=== PATIENT | female | born 1945 | race Caucasian/White ===

== ENCOUNTER → 2019-08-30 17:00 | Outpatient (CLI) | payer MEDICARE, MEDICAID, SELFPAY ==
--- NOTE | 2019-08-30 17:07 | CT_ITS ---
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 Number of images including paperwork: [phone]. A radiation dose optimization technique was used for this scan. Scan was performed per low-dose CT protocol with CTDI 2.01 mGy and DLP 68.46 mGy-cm. COMPARISON: None FINDINGS: Soft tissue evaluation is limited due to low dose protocol. VASCULATURE: Vascular tortuosity. Atherosclerotic calcification. HEART/PERICARDIUM: Moderately enlarged heart. Coronary calcification. MEDIASTINUM: Unremarkable. ADENOPATHY: No pathologic appearing adenopathy. THYROID: Unremarkable visualized portions. LUNG PARENCHYMA: No consolidation or mass. 5 mm noncalcified solid nodule in the superior segment of the left lower lobe on series 2 image 54. 3 mm nodule in the left upper lobe on series 2 image 37 demonstrates faint groundglass halo. Additional nodules measuring less than 3 mm in size are seen bilaterally, some of which appear calcified. Mild peribronchial thickening. Mild emphysema. Linear opacities at the bases may be related to subsegmental atelectasis and/or scarring. PLEURAL SPACES: Unremarkable. UPPER ABDOMEN: Right kidney appears somewhat atrophic with probable small cysts. OSSEOUS AND SOFT TISSUE STRUCTURES: No acute skeletal findings. Degenerative changes. Old fracture deformity of the right proximal humerus. Compression deformities are noted involving T10, T11 and T12 without distinct fracture line or paraspinous hematoma. Correlate for localized pain. DEVICES: None. CT/Low Dose CT Lung Screening IMPRESSION: Multiple lung nodules, largest measuring 5 mm. Lung-RADS 2. Continue annual screening with low-dose chest CT in 12 months. Individualized dose optimization techniques were used for this CT. at 2327 Reported and signed by: Yolanda Pedraza MD Electronically Signed: Yolanda Pedraza MD at 23:26 EST Tel , Service support ,
== END ==
PROVIDERS: PCP Family Medicine; Referring Provider Family Medicine; Visit Provider Family Medicine
DX: Z12.2 Encounter for screening for malignant neoplasm of respiratory organs (principal); Z87.891 Personal history of nicotine dependence
CPT/HCPCS: G0297

== ENCOUNTER 2021-07-14 10:11 | Emergency (ER) | payer MEDICARE, MEDICAID, SELFPAY ==
[2021-07-14 10:12] VITALS: BP 122/78; PULSE 39; RESP 18; TEMP 36.6; O2SAT 95; BMI 21.9
--- NOTE | 2021-07-14 10:51 | EKG12_ITS ---
Test Reason : SYNCOPE Blood Pressure : / mmHG Vent. Rate : 038 BPM Atrial Rate : 038 BPM P-R Int : 122 ms QRS Dur : 092 ms QT Int : 564 ms P-R-T Axes : 033 004 011 degrees QTc Int : 448 ms Marked sinus bradycardia with Premature atrial complexes Nonspecific ST and T wave abnormality Abnormal ECG Confirmed by HENRY ESTRADA, ELIZ ([id number]), mapping editor DAVID DICKERSON ([id number]) on 07/16/2021 9:53:52 AM Referred By: PL Confirmed By:ELIZ FIGUEROA MD
--- NOTE | 2021-07-14 10:54 | EDS_ITS ---
HPI History of Present Illness Chief Complaint: Syncope Informant: patient and family Narrative Narrative: 75-year-old female with a history of coronary artery disease underwent eye surgery today. Postoperatively she was sitting in a wheelchair and became unresponsive. Family tells me that this is not an unusual occurrence. Typically when she passes out she is hypotensive and bradycardic and she goes to outside hospital. She does see local cardiology with Dr. Salazar. She has had prior cardiac stenting. She also has a history of atrial fibrillation and is on metoprolol 50 mg daily as well as Xarelto 20 mg daily. [facility] Medical History Anemia Atherosclerotic heart disease of [place] coronary artery without angina pectoris Dementia Essential (primary) hypertension History of COVID-19 (10/01/20) History of CVA (cerebrovascular accident) (07/27/16) History of septic shock Hyperlipidemia Non-ischemic cardiomyopathy Osteoporosis Paroxysmal atrial fibrillation (07/27/16) Recovering alcoholic in remission Secondary pulmonary arterial hypertension Home Medications isosorbide mononitrate 30 mg PO DAILY 07/20/16 [History Last Taken 07/26/16] lisinopril [Zestril] 40 mg PO DAILY 07/20/16 [History Last Taken 07/26/16] amlodipine 5 mg PO DAILY #30 tablet 07/26/16 [Rx Last Taken 07/26/16] atorvastatin 80 mg PO QHS #30 tablet 07/26/16 [Rx Last Taken 07/25/16] sennosides-docusate sodium [Stool Softener-Stimulant Laxat] 2 tab PO DAILY tablet 08/05/16 [Rx Last Taken Unknown] cholecalciferol (vitamin D3) 1,250 mcg (50,000 unit) capsule 1,250 mcg PO QWEEK 12/17/20 [History Last Taken Unknown] metoprolol tartrate 50 mg tablet 50 mg PO DAILY 12/17/20 [History Last Taken Unknown] rivaroxaban 20 mg tablet 20 mg PO DAILY 12/17/20 [History Last Taken Unknown] trazodone 100 mg tablet 100 mg PO QHS PRN 12/17/20 [History Last Taken Unknown] aspirin 81 mg tablet,delayed release 81 mg PO QDAY #90 tab 12/24/20 [Rx Last Taken Unknown] donepezil 5 mg tablet 5 mg PO DAILY tab 12/24/20 [History Last Taken Unknown] Allergy/AdvReac Type Severity Reaction Status Date / Time Penicillins Allergy Rash Verified 07/14/21 10:17 Family History Father CAD (coronary artery disease) Brother CAD (coronary artery disease) Surgical History History of coronary artery stent placement (12/24/14) History of left heart catheterization (10/09/14) Status post laser cataract surgery of right eye Social History Smoking Status: Former smoker quit date: 07/18/95 pack-years: 50 ROS ROS ED Constitutional Constitutional ED: Denies chills, fever(s) or weight loss Eyes Eyes: Denies change in vision or diplopia ENT ENT ED: Denies ear pain, rhinorrhea or sore throat Cardiovascular Cardiovascular: Reports other Details: Syncope ; Denies chest pain, orthopnea, palpitations or racing heartbeat Respiratory/Chest Respiratory/Chest: Denies cough, dyspnea or orthopnea Gastrointestinal Gastrointestinal: Denies abdominal pain, diarrhea, nausea or vomiting Genitourinary Genitourinary ED: Denies dysuria, hematuria or urinary frequency Musculoskeletal Musculoskeletal: Denies arthralgias or myalgias Integumentary Denies abscess or rash Neurologic Neurologic: Denies headache(s) or weakness Psychiatric Psychiatric: Denies anxiety, depression, suicidal ideation or suicidal thoughts Endocrine Endocrinology: Denies polydipsia, polyphagia or polyuria Allergic/Immunologic Allergic/Immunologic ED: Denies mouth swelling, tongue swelling or urticaria EXAM Physical Exam Const Vital Signs: 07/14/21 10:12 07/14/21 11:51 07/14/21 12:25 Temperature 97.8 F Temperature Source Oral Pulse Rate 39 L 39 L 38 L Respiratory Rate 18 18 18 Blood Pressure 122/78 H 132/66 H 129/67 H Blood Pressure Mean 92 88 87 Pulse Ox 95 97 97 Oxygen Delivery Method Room Air Room Air Room Air Positive well nourished and well developed General Appearance ED: well developed HEENT Reports normocephalic, head/scalp atraumatic and moist mucous membranes HEENT Narrative: Eyes are dilated. Eyes PERRL and EOMs intact bilaterally Neck no lymphadenopathy, supple and no JVD Resp normal respiratory effort and clear to auscultation bilaterally Cardio regular rate and no murmurs Rate: bradycardia GI normal to inspection, nondistended, normoactive bowel sounds and non-tender Palpation: soft Back/Spine no CVA tenderness and normal ROM Extremity normal to inspection General Extremety ED: Negative for edema General Extremity: Negative for edema Neuro CN's II-XII intact bilaterally Sensorium / Orientation: alert and orientation impaired Motor Exam: strength 5/5 throughout Psych mental status grossly normal Mood & Affect: Negative for depressed or tearful Skin no rashes or lesions noted and no wounds MDM MDM MDM Narrative Medical decision making narrative: Basic blood work was obtained and was negative. Troponin is 7. Her EKG is a sinus bradycardia. Interpretation of the chest x-ray is no acute process. Patient's blood pressure has returned to normal. She remains bradycardic in the high 30s to 40s. I spoke with her marketing graphics specialist Dr. Delatorre emergently to discontinue her metoprolol. Lab Data Attestation: I reviewed the patient's lab results. Labs: Laboratory Results - last 24 hr 07/14/21 07/14/21 10:14 11:10 WBC 5.3 RBC 3.96 L Hgb 11.7 L Hct 35.8 L MCV 90.4 MCH 29.5 MCHC 32.7 RDW Std Deviation 46.5 H RDW Coeff of [place] 14.0 Plt Count 140 L MPV 10.0 Immature Gran % (Auto) 0.800 Neut % (Auto) 67.6 Lymph % (Auto) 20.5 [place] % (Auto) 5.8 Eos % (Auto) 4.9 Baso % (Auto) 0.4 Absolute Neuts (auto) 3.6 Absolute Lymphs (auto) 1.09 Nucleated RBC % 0 Sodium 141 Potassium 3.7 Chloride 104 Carbon Dioxide 29.0 Anion Gap 8 BUN 28 H Creatinine 2.19 H Estim Creat Clear Calc 19.46 Est GFR (MDRD) Af Amer 28 L Est GFR (MDRD) Non-Af 23 L BUN/Creatinine Ratio 12.8 Glucose 145 H Calcium 9.0 Total Bilirubin 0.60 AST 10 L ALT 14 Alkaline Phosphatase 79 Troponin I High Sens 7 Total Protein 6.8 Albumin 3.0 L Globulin 3.8 Albumin/Globulin Ratio 0.8 L Radiography Diagnostic Testing: Clinical Impression(s) from Imaging Studies Chest X-Ray 07/14/21 11:26 IMPRESSION: No radiographic evidence of acute cardiopulmonary disease. Electronically Signed: Darrel Heredia MD at 12:12 EST Tel , Service support , EKG Initial EKG: Attestation: I personally reviewed and interpreted this EKG as follows: Comments: Sinus bradycardia with a ventricular rate of 38 bpm Discharge Plan Triage Chief Complaint: Syncope ED Provider: Terrell Owens Dx/Rx/DC Orders Clinical Impression: Syncope, Bradycardia, sinus Instructions: What Is Syncope? Prescriptions: No Action donepezil 5 mg tablet 5 mg PO DAILY RF: 0 aspirin [Adult Low Dose Aspirin] 81 mg tablet,delayed release (DR/EC) 81 mg PO QDAY Qty: 90 RF: 3 cholecalciferol (vitamin D3) 1,250 mcg (50,000 unit) capsule 1,250 mcg PO QWEEK RF: 0 metoprolol tartrate 50 mg tablet 50 mg PO DAILY RF: 0 rivaroxaban 20 mg tablet 20 mg PO DAILY RF: 0 trazodone 100 mg tablet 100 mg PO QHS PRN (Reason: Sleep) RF: 0 isosorbide mononitrate 30 MG tablet 30 mg PO DAILY RF: 0 lisinopril [Zestril] 40 MG tablet 40 mg PO DAILY RF: 0 atorvastatin 80 MG tablet 80 mg PO QHS Qty: 30 RF: 0 amlodipine 5 MG tablet 5 mg PO DAILY Qty: 30 RF: 0 sennosides-docusate sodium [Stool Softener-Stimulant Laxat] 1 TABLET tablet 2 tab PO DAILY RF: 0 Primary Care Provider: Pauly Ventura Referrals: Deandre Salazar MD [STAFF PHYSICIAN] - As soon as possible Pauly Ventura DO [Primary Care Provider] - Activity Restrictions/Additional Instructions: Please discontinue your metoprolol. Disposition Disposition: Home, Self Care
[2021-07-14 11:18] LABS: Absolute Lymphocyte Count 1.09 X10^3/uL (0.83-4.51); Absolute Neutrophil Count 3.6 X10^3/uL (2.0-7.7); Basophil# 0.02 X10^3/uL; Basophil% 0.4 % (0-1); Eosinophil# 0.26 X10^3/uL; Eosinophils% 4.9 % (0-5); Hematocrit 35.8 % (37-47); Hemoglobin 11.7 g/dL (12.0-15.0); Lymphocyte # 1.09 X10^3/ul (0.83-4.51); Lymphocyte % 20.5 % (19-41); Mean Corp Hgb Conc 32.7 g/dL (32-36); Mean Corpuscular Hgb 29.5 pg (27.0-32.0); Mean Corpuscular Volume 90.4 fL (81-99); Monocyte# 0.31 X10^3/uL; Monocyte% 5.8 % (0-10); NRBC Flagged by Analyzer 0 % (0-5); Neutrophil # 3.59 X10^3/uL (2.7-7.7); Neutrophil % 67.6 % (47-70); Platelet Count 140 K/mm3 (150-450); RBC Distribution Width SD 46.5 fl (35.1-43.9); Red Blood Count 3.96 M/mm3 (4.2-5.4); White Blood Count 5.3 K/mm3 (4.4-11.0)
--- NOTE | 2021-07-14 11:26 | RAD_ITS ---
INDICATION: syncope EXAMINATION/TECHNIQUE: X-RAY - XR Chest 1 View COMPARISON: 07/21/2016. FINDINGS: LINES/DEVICES: None. LUNGS: No consolidation, edema or effusion. No pneumothorax. MEDIASTINUM AND CARDIOVASCULAR STRUCTURES: Cardiac silhouette not enlarged. Tortuosity of the thoracic aorta is seen that demonstrates no change. BONES AND SOFT TISSUES: Extensive degenerative bone changes visualized, healed fracture of the proximal right humerus demonstrates no change. Dextroscoliosis of the thoracic spine. RAD/Chest 1 View (Portable) IMPRESSION: No radiographic evidence of acute cardiopulmonary disease. Electronically Signed: Darrel Heredia MD at 12:12 EST Tel , Service support ,
[2021-07-14 11:29] LABS: ALB/GLOB Ratio 0.8 RATIO (0.9-2.4); AST(SGOT) 10 U/L (15-37); Alanine Aminotransfer ALT/SGPT 14 U/L (13-56); Alkaline Phosphatase 79 U/L (45-117); Anion Gap 8 (5-15); BUN 28 mg/dL (7-18); BUN/Creat Ratio 12.8 RATIO (10-20); Chloride 104 mmol/L (98-107); Creatinine, Serum 2.19 mg/dL (0.55-1.02); EST Glomerular Filtration Rate 23 mL/min (>60); Est Glom Filt Rate - Afr Amer 28 mL/min (>60); Estimated Creatinine Clearance 19.46 ml/min; Globulin 3.8 g/dL (2.2-4.2); Glucose 145 mg/dL (74-106); Potassium 3.7 mmol/L (3.5-5.1); Protein, Total 6.8 g/dL (6.4-8.2); Sodium Level 141 mmol/L (136-145); Troponin-I HS 7 pg/mL (3.0-54.0)
[2021-07-14 11:51] VITALS: BP 132/66; PULSE 39; RESP 18; O2SAT 97
[2021-07-14 12:25] VITALS: BP 129/67; PULSE 38; RESP 18; O2SAT 97
[2021-07-14 12:59] VITALS: BP 153/71; PULSE 43; RESP 16; O2SAT 98
== END 2021-07-14 13:30 | disposition home or self-care (01) ==
PROVIDERS: Emergency Provider Emergency Medicine; PCP Family Medicine
DX: R55 Syncope and collapse (principal); R00.1 Bradycardia, unspecified; I49.1 Atrial premature depolarization; I48.0 Paroxysmal atrial fibrillation; I27.21 Secondary pulmonary arterial hypertension; I25.10 Atherosclerotic heart disease of native coronary artery without angina pectoris; I10 Essential (primary) hypertension; E78.5 Hyperlipidemia, unspecified; F03.90 Unspecified dementia, unspecified severity, without behavioral disturbance, psychotic disturbance, mood disturbance, and anxiety; M81.0 Age-related osteoporosis without current pathological fracture; Z95.5 Presence of coronary angioplasty implant and graft; Z79.01 Long term (current) use of anticoagulants; Z79.82 Long term (current) use of aspirin; Z79.899 Other long term (current) drug therapy; Z87.891 Personal history of nicotine dependence; Z86.16 Personal history of COVID-19; Z86.73 Personal history of transient ischemic attack (TIA), and cerebral infarction without residual deficits
CPT/HCPCS: 71045; 80053; 84484; 85025; 93005; 96360; 99285; J7030; A4216

== ENCOUNTER → 2021-11-27 | Outpatient (CLI) | payer MEDICARE, MEDICAID, SELFPAY ==
--- NOTE | 2021-11-27 14:05 | ECHOD_ITS ---
Reason For Study: HTN Procedure This was a 2D Doppler, Color Flow transthoracic echocardiogram. Exam performed in department. Left Ventricle Normal LV size. Left ventricular systolic function is normal. The estimated ejection fraction is 55 %. Stage 1 diastolic dysfunction. No regional wall motion abnormalities noted. Right Ventricle Normal RV size. Normal systolic function. Atria Normal left atrium. Normal right atrium. Mitral Valve Normal mitral valve. Tricuspid Valve Normal tricuspid valve. Mild (1+) tricuspid valve insufficiency. Pulmonary artery systolic pressure is 30 mmHg. Aortic Valve Normal aortic valve. Trisinus/trileaflet aortic valve. Pulmonic Valve Normal pulmonic valve. Great Vessels Normal aortic root. The pulmonary artery is normal size. Normal inferior vena cava. Pericardium/Pleural No pericardial effusion. MMode/2D Measurements & Calculations LVIDd: 4.7 cm IVSd: 0.96 cm Ao root diam: 3.3 cm LVIDs: 2.8 cm LVPWd: 1.1 cm RVDd: 3.4 cm FS: 40.2 % LAV(MOD-bp): 64.2 ml LVAd ap4: 20.4 cm2 SV(MOD-sp4): 30.4 ml LAV(MOD-bp) Indexed: 37.1 ml/m2 LVLd ap4: 6.2 cm LAV(MOD-sp2): 71.9 ml EDV(MOD-sp4): 56.3 ml LAV(MOD-sp4): 52.7 ml EDV(sp4-el): 56.7 ml LVAs ap4: 12.0 cm2 LVLs ap4: 5.1 cm ESV(MOD-sp4): 25.9 ml ESV(sp4-el): 24.1 ml EF(MOD-sp4): 54.0 % EF(sp4-el): 57.4 % SV(sp4-el): 32.6 ml LA A4 area: 17.8 cm2 LA dimension(2D): 4.7 cm RA A4 area: 11.5 cm2 Doppler Measurements & Calculations MV E max denzel: 40.1 cm/sec Lat Peak E' Denzel: 5.7 cm/sec Med Peak E' Denzel: 3.4 cm/sec MV A max denzel: 72.5 cm/sec E/E' lat: 7.1 E/E' med: 11.7 MV E/A: 0.55 Ao V2 max: 125.5 cm/sec LV V1 max: 77.0 cm/sec PA V2 max: 64.9 cm/sec Ao max P.3 mmHg LV V1 max P.4 mmHg Ao V2 mean: 94.0 cm/sec Ao mean P.8 mmHg Ao V2 VTI: 21.9 cm TR max denzel: 259.0 cm/sec TR max P.8 mmHg ECHO/Echo Complete Interpretation Summary Normal LV size. Left ventricular systolic function is normal. The estimated ejection fraction is 55 %. Stage 1 diastolic dysfunction. Pulmonary artery systolic pressure is 30 mmHg. Compared to previous study, the left ventricular systolic function has improved .. Ordering Physician: Leo Blake Referring Physician: Pauly Ventura Performed By: Libby Blake, [place], RVT
== END | disposition home or self-care (01) ==
LOC: CVS 14:04
PROVIDERS: PCP Family Medicine; Referring Provider Nurse Practitioner Family; Visit Provider Nurse Practitioner Family
DX: I25.10 Atherosclerotic heart disease of native coronary artery without angina pectoris (principal); I42.8 Other cardiomyopathies; I10 Essential (primary) hypertension; E78.5 Hyperlipidemia, unspecified
CPT/HCPCS: 93306